=== PATIENT | male | born 1960 | race Caucasian/White ===

== ENCOUNTER 2018-11-20 06:14 | Day surgery (SDC) | payer BC ==
[2018-11-09 14:34] VITALS: BMI 33.5
[2018-11-20] MEDS ORDERED: BUPIVACAINE HCL/PF 2.5 MG/ML - 30 ML VIAL IJ ONE (07:15)
[2018-11-20] MEDS ORDERED: EPINEPHrine 1:1,000 1 MG/1 ML - 30ML VIAL (INJECTION) ONE (07:15)
[2018-11-20] MEDS ORDERED: ONDANSETRON 4 MG/2 ML VIAL ONE (07:18)
[2018-11-20] MEDS ORDERED: KETOROLAC TROMETHAMINE 30 MG/1 ML VIAL ONE (07:18)
[2018-11-20] MEDS ORDERED: MIDAZOLAM HCL 2 MG/2 ML SINGLE DOSE VIAL ONE (07:18)
[2018-11-20] MEDS ORDERED: DEXAMETHASONE SOD PHOSPHATE 4 MG/1 ML VIAL ONE ×2 (07:18→08:07)
[2018-11-20] MEDS ORDERED: PROPOFOL 20 ML ONE ×3 (07:19→08:07)
[2018-11-20] MEDS ORDERED: SUCCINYLCHOLINE CHLORIDE 200 MG/10 ML VIAL ONE (07:19)
[2018-11-20] MEDS ORDERED: ONDANSETRON 4 MG/2 ML VIAL IVPUSH PRN (07:40)
[2018-11-20] MEDS ORDERED: oxyCODONE HCL 5 MG TABLET PO PRN ×2 (07:40)
[2018-11-20] MEDS ORDERED: LACTATED RINGERS SOLUTION 1,000 ML IV SCH (07:45)
[2018-11-20] MEDS ORDERED: LIDOCAINE HCL/PF 2% SDV 5ML VIAL ONE (08:07)
[2018-11-20] MEDS ORDERED: BUPIVACAINE HCL/PF 0.25% (2.5MG/ML) 10 ML VIAL IJ ONE (09:14)
--- NOTE | 2018-11-20 09:38 | OPR ---
DATE OF OPERATION: 11/20/18 TITLE OF OPERATION: Left knee partial lateral meniscectomy, microfracture and chondroplasty lateral femoral condyle, chondroplasty patella, synovectomy and debridement. PREOPERATIVE DIAGNOSIS: Left knee lateral meniscus tear, chondromalacia, and synovitis. POSTOPERATIVE DIAGNOSIS: Left knee lateral meniscus tear, chondromalacia patella and medial femoral condyle, synovitis. SURGEON: Espinoza Sam DO TOBACCO FLAVORER: Davonte Ravi DO ANESTHESIA: General anesthesia SPECIMEN: None COMPLICATIONS: none EBL: 5 ml TOURNIQUET TIME: 0 mins INDICATIONS FOR SURGERY: Dr. Quevedo is a 58 year old male who presented in the preoperative setting with a chief complaint of left knee pain and swelling after a twisting injury. He was diagnosed with a lateral meniscus tear. After attempting and failing conservative management including physical therapy and bracing and rest, we decided to discuss surgical options. Based on their pre- injury level of activity, surgical treatment was discussed. The risks and benefits of surgery and anesthesia were discussed in detail including but not limited to pain, bleeding, infection, scarring, damage to vessels and nerves, failure to obtain the desired result, failure to heal, failure to return to sport or work. Understanding the risks and benefits, Dr. Quevedo opted to proceed with surgical management. SURGEON'S NARRATIVE: After informed consent was obtained the patient was brought the operating room prepped draped in usual fashion sterile technique. Timeout was called. Site verification was performed and perioperative antibiotics were administered. A standard anterolateral portal was made and the 4 mm 30 degree arthroscope was inserted into the knee joint without difficulty. This revealed grade 3 patellofemoral chondromalacia. The medial compartment showed no meniscal tearing and no chondral damage. I used an 18 gauge needle to confirm placement of my anteromedial portal, and made an incision using an 11-blade. I inserted the probe and probed the medial femoral condyle, tibial plateau, and medial meniscus, all of which did not show any tearing or chondromalacia. Turning my attention the lateral compartment the patient had a complex and unstable tear of the posterior horn of the lateral meniscus involving the body of the meniscus at the hiatus. There was significant associated chondromalacia of the lateral compartment and a chondral lesion about 1 x 0.5cm. After debriding the cartilage to an adequate margin, this lesion was microfractured using a 60 degree pic. I performed a partial lateral meniscectomy removing the torn tissue with an arthroscopic shaver. I estimate that I removed approximately 60 percent of the remaining meniscus. The remaining meniscus was stable after the resection. I then performed a chondroplasty of the patella and a synovectomy of the patellafemoral joint. This completed the procedure. I closed incisions with 3-0 nylon, and injected the portal sites with 20 cc's total of 0.25% Marcaine. Xeroform and a sterile dressing was placed. Patient tolerated procedure well and arrived recovery in stable condition.
[2018-11-20 11:13] VITALS: TEMP 97.9
[2018-11-20 11:27] VITALS: BP 135/85; PULSE 82
== END 2018-11-20 11:00 | disposition home or self-care (01) ==
LOC: FASU 06:14
PROVIDERS: ATTEND Orthopaedic Surgery Sports Medicine
PROC: 0SQD4ZZ Repair Left Knee Joint, Percutaneous Endoscopic Approach (ICD-10-PCS; 2018-11-20)
PROC: 0SBD4ZZ Excision of Left Knee Joint, Percutaneous Endoscopic Approach (ICD-10-PCS; 2018-11-20)
PROC: 0SBD4ZZ Excision of Left Knee Joint, Percutaneous Endoscopic Approach (ICD-10-PCS; principal; 2018-11-20 08:16)
PROC: 0SBD4ZZ Excision of Left Knee Joint, Percutaneous Endoscopic Approach (ICD-10-PCS; 2018-11-20 08:16)
DX: S83.272A Complex tear of lateral meniscus, current injury, left knee, initial encounter (principal); M22.42 Chondromalacia patellae, left knee; M65.9 Synovitis and tenosynovitis, unspecified; X50.0XXA Overexertion from strenuous movement or load, initial encounter; Y93.9 Activity, unspecified; Y92.9 Unspecified place or not applicable
CPT/HCPCS: 29879; 29881; G0289; 94760; 97116-GP